=== PATIENT | male | born 1995 | race Caucasian/White ===

== ENCOUNTER 2017-07-15 23:08 | Emergency (ER) | payer BC ==
[~2017-07-15] VITALS: Ht 188 cm; Wt 75.1 kg
[2017-07-15 23:14] VITALS: BP 145/70; PULSE 80; RESP 18; TEMP 97.8; O2SAT 98
[2017-07-16] MEDS ORDERED: LIDOCAINE HCL 1% PF 30 ML VIAL ONE (00:55)
--- NOTE | 2017-07-16 00:57 | PD ---
HPI Chief Complaint: Laceration/Skin Injury Time Seen by Provider: 00:41 Travel History International Travel<30 days: No Contact w/Intl Traveler<30days: No Traveled to known affect area: No History of Present Illness HPI 22-year-old male came to the emergency room with history of left thumb laceration when he was trying to put a final tile on the floor. Piece of the tile slipped and cut his finger. This happened at 8 PM. Patient currently is not actively bleeding. He does not recall his last tetanus shot. He is otherwise a healthy person. [facility] Past Medical History Narrative Medical List of his past medical, surgical, social and family history reviewed from the nursing note. Medical History: Denies Significant Hx Tetanus Vaccination: > 5 Years Influenza Vaccination: No Past Surgical History Surgical History: No Previous Surgery Social History Alcohol Use: Yes (4-5 DAYS PER WEEK) Tobacco Use: Yes (1/2 PPD) Substance Use: No Allergies-Medications (Allergen,Severity, Reaction): Coded Allergies: No Known Allergies (Unverified , 07/15/17) Comments No known drug allergy Reported Meds & Prescriptions Reported Meds & Active Scripts Active No Active Prescriptions or Reported Medications Narrative Medication List of his home medications reviewed from the nursing note. Review of Systems Except as stated in HPI: all other systems reviewed are Neg Physical Exam Narrative GENERAL: Awake, alert, no obvious distress SKIN: Focused skin assessment warm/dry. Left thumb at the DIP has a curvilinear laceration that is 1.5 cm long. No active bleeding HEAD: Atraumatic. Normocephalic. EYES: Pupils equal and round. No scleral icterus. No injection or drainage. ENT: No nasal bleeding or discharge. Mucous membranes pink and moist. NECK: Trachea midline. No JVD. CARDIOVASCULAR: Regular rate and rhythm. No murmur appreciated. RESPIRATORY: No accessory muscle use. Clear to auscultation. Breath sounds equal bilaterally. GASTROINTESTINAL: Abdomen soft, non-tender, nondistended. Hepatic and splenic margins not palpable. MUSCULOSKELETAL: No obvious deformities. No clubbing. No cyanosis. No edema. Patient can flex and extend his thumb at the DIP but cannot extend under resistance NEUROLOGICAL: Awake and alert. No obvious cranial nerve deficits. Motor grossly within normal limits. Normal speech. PSYCHIATRIC: Appropriate mood and affect; insight and judgment normal. Data Data Last Documented VS Orders Orders Finger ([id number]) (07/16/17 ) Tetanus/Diphtheria Tox Adult (Tetanus/Di (07/16/17 01:00) Lidocaine Pf 1% Inj (Xylocaine-Mpf 1% In (07/16/17 00:55) MDM Medical Decision Making Medical Screen Exam Complete: Yes Emergency Medical Condition: Yes Medical Record Reviewed: Yes Differential Diagnosis Thumb laceration, tendon laceration, fracture Narrative Course 1:06 AM I have ordered for tetanus shot and an x-ray. We will see x-rays done and have looked at it I would repair the laceration. 4:19 AM there was a delay in repairing the laceration due to a few critical patients in the department and I was the solo provider. I was informed that patient left before the laceration could be repaired. Procedures EKG Prior to Arrival: No Diagnosis Primary Impression: Thumb laceration Qualified Codes: S61.012A - Laceration without foreign body of left thumb without damage to nail, initial encounter Scripts No Active Prescriptions or Reported Meds Disposition: 07 AGAINST MEDICAL ADVICE Condition: Stable Delano Nieto MD Jul 16, 2017 00:57
[2017-07-16] MEDS ORDERED: TETANUS/DIPHTHERIA TOXOID ADULT 0.5 ML VIAL IM ONE (01:00)
--- NOTE | 2017-07-16 01:36 | RADRPT ---
EXAM DATE/TIME: 07/16/2017 01:02 [facility] COMPARISON: No previous studies available for comparison. INDICATIONS : Left hand, first digit pain and laceration from cutting vinyl. MEDICAL HISTORY : None. SURGICAL HISTORY : None. ENCOUNTER: Initial ACUITY: 1 day PAIN SCORE: 4/10 LOCATION: Left hand, first digit. FINDINGS: Examination of the first digit of the left hand demonstrates no evidence of fracture or dislocation. No radiopaque foreign bodies are seen. CONCLUSION: 1. No evidence of recent bone injury. Juan Carlos Anna MD on July 16, 2017 at 1:34 Board Certified Radiologist. This report was verified electronically.
== END 2017-07-16 04:08 | disposition left against medical advice (07) ==
LOC: PHED 23:08
DX: S61.012A Laceration without foreign body of left thumb without damage to nail, initial encounter (principal); F17.200 Nicotine dependence, unspecified, uncomplicated; Z23 Encounter for immunization; Z53.29 Procedure and treatment not carried out because of patient's decision for other reasons; W45.8XXA Other foreign body or object entering through skin, initial encounter
CPT/HCPCS: 73140; 90471; 90714